=== PATIENT | female | born 1970 | race African-American/Black ===

== ENCOUNTER 2020-03-15 16:58 | Emergency (ER) | payer BC, OTHER ==
[~2020-03-15] VITALS: Ht 165.1 cm; Wt 83.0 kg
[2020-03-15 17:08] VITALS: BP 146/81
[2020-03-15] MEDS ORDERED: ACETAMINOPHEN 325MG TABLET PO ONE (17:45)
== END 2020-03-15 18:15 | disposition home or self-care (01) ==
LOC: ER 16:58
DX: R51 Headache (principal); M79.18 Myalgia, other site; V43.52XA Car driver injured in collision with other type car in traffic accident, initial encounter; Y93.89 Activity, other specified; Y92.410 Unspecified street and highway as the place of occurrence of the external cause; Z91.010 Allergy to peanuts
CPT/HCPCS: 99283